=== PATIENT | male | born 1970 | race Two or more races ===

== ENCOUNTER 2024-04-22 17:17 | Emergency (ER) | payer SELFPAY ==
[~2024-04-22] VITALS: Ht 177.8 cm; Wt 82.0 kg
[2024-04-22 17:25] VITALS: O2SAT 98
[2024-04-22] MEDS: MORPHINE SULFATE 4 MG/ML INJ (FOR IV/IM USE) IV ONE (17:59)
[2024-04-22] MEDS: ONDANSETRON HCL 4MG/2ML INJ IV ONE (18:00)
[2024-04-22] MEDS: TETANUS, DIPHTHERIA, PERTUSSIS VAC/PF 0.5ML (>10YR OLD) IM ONE (18:01)
[2024-04-22 19:16] LABS: BASOPHILS % 0.4 % (0.0-2.0); EOSINOPHILS % 1.9 % (0.0-5.0); HEMATOCRIT. 46.1 % (42.0-52.0); HEMOGLOBIN. 15.7 g/dL (14.0-18.0); LYMPHOCYTES % 16.2 % (20.0-50.0); MEAN CORPUSCULAR HEMOGLOBIN 28.4 pg (28.0-32.0); MEAN CORPUSCULAR HGB CONC 34.1 g/dL (31.0-37.0); MEAN CORPUSCULAR VOLUME 83.4 fL (80.0-94.0); MONOCYTES % 6.4 % (2.0-8.0); NEUTROPHILS % 75.1 % (40.0-76.0); PLATELET 223 x1000/uL (130-400); RED BLOOD CELL COUNT 5.52 mill/uL (4.7-6.1); WHITE BLOOD COUNT 7.2 x1000/uL (4.5-11.0)
[2024-04-22 19:21] LABS: CARBON DIOXIDE 28 mEq/L (21-32)
[2024-04-22 19:22] LABS: CALCIUM 9.3 mg/dL (8.7-10.4); CHLORIDE 104 mEq/L (98-107); POTASSIUM 3.7 mEq/L (3.5-5.1); SODIUM 137 mEq/L (136-145)
[2024-04-22 19:24] LABS: PROTHROMBIN TIME 11.5 sec (9.6-11.0)
[2024-04-22 19:26] LABS: CREATININE 1.1 mg/dL (0.6-1.3); GLUCOSE 103 mg/dL (70-105)
[2024-04-22 19:27] LABS: UREA NITROGEN BLOOD 12 mg/dL (9-23)
[2024-04-22] MEDS ORDERED: METH-653 MT (19:32)
[2024-04-22] MEDS ORDERED: IBUP-2029 MT (19:32)
[2024-04-22 19:53] VITALS: BP 184/112; PULSE 97; RESP 20; TEMP 36.94740; O2SAT 97
[2024-04-22] MEDS ORDERED: IOHEXOL-300 100 ML BOTTLE ONE (23:01)
== END 2024-04-22 20:02 | disposition home or self-care (01) ==
LOC: ER 17:17
DX: S13.4XXA Sprain of ligaments of cervical spine, initial encounter (principal); S80.12XA Contusion of left lower leg, initial encounter; S09.90XA Unspecified injury of head, initial encounter; V89.2XXA Person injured in unspecified motor-vehicle accident, traffic, initial encounter; Y93.89 Activity, other specified; Y92.89 Other specified places as the place of occurrence of the external cause; Y99.8 Other external cause status
CPT/HCPCS: 80048; 85025; 85610; 36415; 71045; 73590; 70450; 72125; 74177; 96374; 96375; 99285; Q9967; J2405; J2270; Z7610